=== PATIENT | male | born 1945 | race Caucasian/White ===

== ENCOUNTER 2020-09-04 13:31 | Outpatient (CLI) | payer MEDICARE, OTHER ==
--- NOTE | 2020-09-04 13:57 | XRAY Report ---
PROCEDURE: Knee 3 View BILAT INDICATIONS: HX OF KNEE FX, BILAT KNEE PAIN, BILAT KNEE OSTEOAR TECHNIQUE: 3 views of each knee) were acquired. COMPARISON: None. 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 Fracture fixatio n wires within the right patella. Mild tricompartmental periarticular osteophyte formation bilaterall y. Soft tissues: No joint effusion. No suspicious soft tissue calcifications. IMPRESSION: 1. Fractured right patellar fixation wires with ununited fracture fragments. 2. Bilateral knee osteoarthritis. 3. No acute fracture. No osseous lesion. If symptoms and/or clinical suspicion for pathology continue , further assessment with repeat plain films, or advanced imaging (e.g., CT, MRI, or bone scan) is re commended for further assessment. Reviewed by: Zenaida Mcgraw MD on 09/04/2020 1:55 PM PST Approved by: Zenaida Mcgraw MD on 09/04/2020 1:55 PM PST Station ID: [id number]
== END 2020-09-04 13:32 | disposition home or self-care (01) ==
LOC: DI 13:31
PROVIDERS: ATTEND Naprapath
DX: M17.0 Bilateral primary osteoarthritis of knee (principal); Z87.81 Personal history of (healed) traumatic fracture

== ENCOUNTER 2022-05-31 21:12 | Outpatient (CLI) | payer MEDICARE, OTHER | END 2022-05-31 21:13 | disposition critical access hospital (66) | LOC: EMS 21:12 | DX: R55 Syncope and collapse (principal); I95.9 Hypotension, unspecified | CPT/HCPCS: A0425; A0427 ==

== ENCOUNTER 2022-05-31 21:39 | Emergency (ER) | payer MEDICARE, OTHER ==
[2022-05-31] MEDS ORDERED: SODIUM CHLORIDE 0.9% 500 ML IV STA (22:08)
--- NOTE | 2022-05-31 22:09 | ED Physician Documentation ---
PD HPI SYNCOPE - Stated complaint Stated Complaint: AMS/HYPOTENSIVE - Chief complaint Chief Complaint: Neuro - History obtained from History obtained from: Patient, EMS (Medics noted initial BP to be 75/41 systolic. HR good. Patient feeling okay enroute and BP improved.) - History of Present Illness Witnessed: Witnessed (patient had dinner and was sitting outside with spouse, having drink and some cannibis, which is common for them. [place] lightheaded and partner said the patient became unresponsive in the chair. Spouse moved him to the ground and patient started rousing. Was awake by EMS arrival. They noted BP low.) Timing - onset: How many minutes ago (30) Duration: Seconds Preceding symptoms: Light headed. No: Headache, Chest pain, Abdominal pain Associated symptoms: Other (did have feeling of general body aches and malaise earlier today.). No: Seizure, Headache, Chest pain, Abdominal pain Contributing factors: Recent med change (got COVID and Flu vaccines 2 days ago. Had increase in Doxazosin and added finasteride 2 weeks ago.). No: Decreased PO intake, Just stood up Injury occurred: No: Fell, Head injury, Neck injury Review of Systems Constitutional: reports: Myalgias, Fatigue. denies: Fever, Chills Nose: denies: Rhinorrhea / runny nose, Congestion Throat: denies: Sore throat Cardiac: denies: Chest pain / pressure, Palpitations, Pedal edema, Calf pain Respiratory: denies: Cough GI: denies: Abdominal Pain, Nausea, Vomiting Neurologic: denies: Focal weakness, Altered mental status, Headache PD PAST MEDICAL HISTORY - Past Medical History Cardiovascular: None Respiratory: None Neuro: None Endocrine/Autoimmune: None : Benign prostate hypertrophy - Allergies Allergies/Adverse Reactions: Allergies Allergy/AdvReac Type Severity Reaction Status Date / Time No Known Drug Allergies Allergy Verified 05/31/22 21:55 PD ED PE NORMAL - Vitals Vital signs reviewed: Yes - General General: Alert and oriented X 3, No acute distress, Well developed/nourished - HEENT HEENT: Pharynx benign - Neck Neck: Supple, no meningeal sign, No adenopathy - Cardiac Cardiac: RRR, No murmur - Respiratory Respiratory: Clear bilaterally - Abdomen Abdomen: Soft, Non tender - Derm Derm: Normal color, Warm and dry - Extremities Extremities: Normal ROM s pain, No edema, No calf tenderness / cord Results - Vitals Vitals: Oxygen O2 Source Room air - EKG (time done) 22:24 Rate: Rate (enter#) (60) Rhythm: NSR [place]: Normal Intervals: Normal LA QRS: Normal Ischemia: Normal ST segments. No: ST elevation c/w ischemia, ST depression Compare to prior EKG: Old EKG unavailable Computer interpretation: Agree with computer - Labs Labs: Laboratory Tests 05/31/22 05/31/22 05/31/22 22:25 22:25 22:25 WBC 6.0 RBC 3.81 L Hgb 11.8 L Hct 36.5 L MCV 95.8 H MCH 31.0 MCHC 32.3 RDW 13.1 Plt Count 158 MPV 11.3 Neut # (Auto) 3.9 Lymph # (Auto) 1.2 L Webb # (Auto) 0.6 Eos # (Auto) 0.3 Baso # (Auto) 0.0 Absolute Nucleated RBC 0.00 Nucleated RBC % 0.0 Sodium 141 Potassium 3.7 Chloride 106 Carbon Dioxide 27 Anion Gap 8.0 BUN 31 H Creatinine 1.4 H Estimated GFR (MDRD) 49 L Glucose 124 H Calcium 8.6 Magnesium 2.1 Total Bilirubin 0.6 AST 17 ALT 14 Alkaline Phosphatase 52 Troponin I High Sens 7.5 Total Protein 6.3 L Albumin 3.8 Globulin 2.5 Albumin/Globulin Ratio 1.5 Lipase 42 PD MEDICAL DECISION MAKING - ED course Complexity details: reviewed results, considered differential (seems likely confluence of recent med increase, some effect from vaccine 2 days ago, and some alcohol. ), d/w patient Departure - Departure Disposition: 01 Home, Self Care Clinical Impression: Syncope, Transient hypotension Condition: Stable Record reviewed to determine appropriate education?: Yes Instructions: ED Fainting Unkn Cause Follow-Up: You Starkey MD [Primary Care Provider] - Comments: Your basic blood tests vital signs and EKG are good here. No signs of heart attack or abnormal heart rhythm. Blood sugar was good. At this point it is unclear the cause of your transient low blood pressure. It could have been a combined effect of hydration level, some side symptoms from your vaccinations 2 days ago and the recently increased prostate medicines. Stay well-hydrated. For now I would suggest going down to the prior dose of the doxazosin. If you are feeling well over the next few days, then you could resume the double dose that you are currently on. Follow-up with your primary care if repeated episodes in the near future. Discharge Date/Time: 05/31/22 23:37
--- OUTSIDE RECORDS SUMMARY | 2022-05-31 22:33 | EXTERNAL MEDICAL SUMMARY RPT | Continuity of Care Document ---
:1945 Author Organization [facility] Address [address] [place] [address] Phone Care Team Providers Name Role Phone Unavailable Unavailable Unavailable Promise Patient Registrar, Alma Unavailable Kimmie Andinop,Reinforcement Maker, Kuldeep Unavailable Unavailable Allergies No information. Encounters No information. Functional Status No information. Immunizations No information. Medications date description facility [id number] methylprednisolone [facility] [place] [phone]+0000 methylprednisolone [facility] [place] [id number]+0000 amoxicillin [facility] [place] [phone]+0000 amoxicillin [facility] [place] [phone]+0000 amoxicillin [facility] [place] [phone]+0000 amoxicillin [facility] [place] [phone]+0000 oxymetazoline [facility] [place] [phone]+0000 oxymetazoline [facility] [place] [phone]+0000 amoxicillin [facility] [place] [phone]+0000 amoxicillin [facility] [place] [phone]+0000 gemfibrozil [facility] [place] [phone]+0000 gemfibrozil [facility] [place] [phone]+0000 gemfibrozil [facility] [place] [phone]+0000 methylprednisolone [facility] [place] [phone]+0000 methylprednisolone [facility] [place] [phone]+0000 doxazosin [facility] [place] [phone]+0000 doxazosin [facility] [place] [phone]+0000 doxazosin [facility] [place] [phone]+0000 oxymetazoline [facility] [place] [phone]+0000 oxymetazoline [facility] [place] [phone]+0000 methylprednisolone [facility] [place] [phone]+0000 methylprednisolone [facility] [place] [phone]+0000 doxazosin [facility] [place] [phone]+0000 doxazosin [facility] [place] [phone]+0000 doxazosin [facility] [place] [phone]+0000 enalapril maleate [facility] [place] [phone]+0000 enalapril maleate [facility] [place] [phone]+0000 enalapril maleate [facility] [place] [phone]+0000 amoxicillin [facility] [place] [phone]+0000 amoxicillin [facility] [place] [phone]+0000 gemfibrozil [facility] [place] [phone]+0000 gemfibrozil [facility] [place] [phone]+0000 gemfibrozil [facility] [place] [phone]+0000 enalapril maleate [facility] [place] [phone]+0000 enalapril maleate [facility] [place] [phone]+0000 enalapril maleate [facility] [place] [phone]+0000 doxazosin [facility] [place] [phone]+0000 doxazosin [facility] [place] [phone]+0000 doxazosin [facility] [place] [phone]+0000 gemfibrozil [facility] [place] [phone]+0000 gemfibrozil [facility] [place] [phone]+0000 gemfibrozil [facility] [place] [phone]+0000 oxymetazoline [facility] [place] [phone]+0000 oxymetazoline [facility] [place] [phone]+0000 enalapril maleate [facility] [place] [phone]+0000 enalapril maleate [facility] [place] [phone]+0000 enalapril maleate [facility] [place] [phone]+0000 doxazosin [facility] [place] [phone]+0000 doxazosin [facility] [place] [phone]+0000 doxazosin [facility] [place] [phone]+0000 methylprednisolone [facility] [place] [phone]+0000 methylprednisolone [facility] [place] [phone]+0000 enalapril maleate [facility] [place] [phone]+0000 enalapril maleate [facility] [place] [phone]+0000 enalapril maleate [facility] [place] [phone]+0000 gemfibrozil [facility] [place] [phone]+0000 gemfibrozil [facility] [place] [phone]+0000 gemfibrozil [facility] [place] Problems No information. Procedures date description facility [id number] Visit Code Hold [facility] [place] Results/Labs No information. Social History date description facility +0000 Never smoker [facility] [place] Vital Signs date measurement value units +0000 BMI BMI 32.99 kg/m2 +0000 BP_diastolic BP_diastolic 76 mmHg +0000 BP_systolic BP_systolic 138 mmHg +0000 heart_rate heart_rate 63 /min +0000 height_metric height_metric 190.5 cm +0000 height_standard height_standard 75 in +0000 respiration_rate respiration_rate 16 /min +0000 temperature_metric temperature_metric 36.22 C +0000 temperature_standard temperature_standard 9 7.2 F +0000 weight_metric weight_metric 119.29 kg +0000 weight_standard weight_standard 263 lb
[2022-05-31 22:38] LABS: BASOPHILS % (AUTO) 0.2 %; EOSINOPHILS # (AUTO) 0.3 10^3/uL (0.0-0.7); EOSINOPHILS % (AUTO) 4.8 %; HCT - HEMATOCRIT 36.5 % (42.0-52.0); HGB - HEMOGLOBIN 11.8 g/dL (14.0-18.0); LYMPHOCYTES # (AUTO) 1.2 10^3/uL (1.5-3.5); LYMPHOCYTES % (AUTO) 20.1 %; MEAN CORPUSCULAR HGB CONC 32.3 g/dL (32.0-36.0); MEAN CORPUSCULAR VOLUME 95.8 fL (80.0-94.0); MEAN PLATELET VOLUME 11.3 fL (7.4-11.4); MONOCYTES # (AUTO) 0.6 10^3/uL (0.0-1.0); NEUTROPHILS # (AUTO) 3.9 10^3/uL (1.5-6.6); NEUTROPHILS % (AUTO) 64.4 %; PLT - PLATELET COUNT 158 10^3/uL (130-450); RED BLOOD COUNT 3.81 10^6/uL (4.70-6.10); RED CELL DISTRIBUTION WIDTH 13.1 % (12.0-15.0)
[2022-05-31 22:52] LABS: ALBUMIN 3.8 g/dL (3.2-5.5); ALBUMIN/GLOBULIN RATIO 1.5 (1.0-2.2); BILIRUBIN,TOTAL 0.6 mg/dL (0.2-1.0); CALCIUM 8.6 mg/dL (8.5-10.3); CREATININE 1.4 mg/dL (0.6-1.2); MAGNESIUM 2.1 mg/dL (1.7-2.8); POTASSIUM 3.7 mmol/L (3.5-5.0); TOTAL PROTEIN 6.3 g/dL (6.7-8.2)
[2022-05-31 23:07] VITALS: BP 135/79
== END 2022-05-31 23:37 | disposition home or self-care (01) ==
LOC: EDUNIT# → ED 21:39
DX: R55 Syncope and collapse (principal); I95.89 Other hypotension
CPT/HCPCS: 36415; 80053; 83690; 83735; 84484; 85025; 93005; 96360; 99284

== ENCOUNTER 2022-11-15 22:10 | Outpatient (CLI) | payer MEDICARE, OTHER | END 2022-11-15 23:59 | disposition critical access hospital (66) | LOC: EMS 22:10 | DX: R40.4 Transient alteration of awareness (principal); I95.9 Hypotension, unspecified | CPT/HCPCS: A0425; A0427 ==

== ENCOUNTER 2022-11-15 22:33 | Emergency (ER) | payer MEDICARE, OTHER ==
[2022-11-15] MEDS ORDERED: SODIUM CHLORIDE 0.9% 1,000 ML IV STA (23:13)
[2022-11-15 23:36] LABS: BASOPHILS % (AUTO) 0.5 %; EOSINOPHILS # (AUTO) 0.3 10^3/uL (0.0-0.7); EOSINOPHILS % (AUTO) 4.6 %; HCT - HEMATOCRIT 35.3 % (42.0-52.0); HGB - HEMOGLOBIN 11.5 g/dL (14.0-18.0); LYMPHOCYTES # (AUTO) 1.1 10^3/uL (1.5-3.5); LYMPHOCYTES % (AUTO) 18.7 %; MEAN CORPUSCULAR HEMOGLOBIN 30.9 pg (27.0-31.0); MEAN CORPUSCULAR HGB CONC 32.6 g/dL (32.0-36.0); MEAN CORPUSCULAR VOLUME 94.9 fL (80.0-94.0); MEAN PLATELET VOLUME 11.4 fL (7.4-11.4); MONOCYTES # (AUTO) 0.6 10^3/uL (0.0-1.0); MONOCYTES % (AUTO) 10.4 %; NEUTROPHILS % (AUTO) 65.5 %; PLT - PLATELET COUNT 149 10^3/uL (130-450); RED BLOOD COUNT 3.72 10^6/uL (4.70-6.10); RED CELL DISTRIBUTION WIDTH 13.3 % (12.0-15.0); WHITE BLOOD COUNT 6.1 x10^3/uL (4.8-10.8)
--- NOTE | 2022-11-15 23:38 | XRAY Report ---
PROCEDURE: Chest 1 View X-Ray INDICATIONS: chest pain TECHNIQUE: One view of the chest was acquired. COMPARISON: None. FINDINGS: Surgical changes and devices: None. Lungs and pleura: An incomplete inspiratory result is noted, with low lung volumes and crowding of t he vascular markings. No focal infiltrates are seen. No large pneumothorax or large pleural effusion can be seen. Mediastinum: Mediastinal contours appear normal. Heart size is normal. Bones and chest wall: No suspicious bony lesions. Overlying soft tissues appear unremarkable. IMPRESSION: Limited portable chest examination, without an acute abnormality identified. Reviewed by: Bryon Knapp MD on 11/15/2022 10:37 PM ANEUDY Approved by: Bryon Knapp MD on 11/15/2022 10:37 PM ANEUDY Station ID: [id number]
[2022-11-15 23:51] LABS: BILIRUBIN,URINE NEGATIVE (NEGATIVE); GLUCOSE, URINE (UA) NEGATIVE (NEGATIVE); KETONES,URINE (UA) NEGATIVE (NEGATIVE); LEUKOCYTE ESTERASE, URINE NEGATIVE (NEGATIVE); NITRITE,URINE NEGATIVE (NEGATIVE); OCCULT BLOOD,URINE NEGATIVE (NEGATIVE); PH,URINE 5.5 PH (5.0-7.5); PROTEIN,URINE NEGATIVE (NEGATIVE); UROBILINOGEN,URINE 0.2 (NORMAL) E.U./dL (NORMAL)
[2022-11-15 23:55] LABS: CLARITY,URINE CLEAR (CLEAR)
[2022-11-16 00:06] LABS: ALBUMIN 3.8 g/dL (3.2-5.5); ALBUMIN/GLOBULIN RATIO 1.5 (1.0-2.2); BILIRUBIN,TOTAL 0.6 mg/dL (0.2-1.0); CALCIUM 8.5 mg/dL (8.5-10.3); CREATININE 1.4 mg/dL (0.6-1.2); POTASSIUM 3.5 mmol/L (3.5-5.0); TOTAL PROTEIN 6.4 g/dL (6.7-8.2)
--- NOTE | 2022-11-16 01:11 | ED Physician Documentation ---
PD HPI SYNCOPE - Stated complaint Stated Complaint: AMS - Chief complaint Chief Complaint: Neuro - History obtained from History obtained from: Patient, EMS - Additional information Additional information: HPI is from patient as well as from EMS. Patient is brought in by ambulance. At approximately 9 PM tonight, patient says he was sitting with friends around a fire pit. Patient says he was smoking marijuana. He says he had a long car trip during the day today and had left behind his water bottle at 1 point, and thus he feels he might be dehydrated. He does not recall any prodrome, but suddenly was waking up after having lost consciousness for reportedly 3 to 5 minutes. By the time EMS arrived on scene, patient was a AO x4 and asymptomatic with normal vital signs. His fingerstick blood sugar for EMS was 141. Initial BP was 73 SBP (by palp), subsequently 98/56 with IV NS infusion en route. Patient says he had a similar episode last year and was evaluated in the emergency department and that test results were unremarkable and thus no etiology was determined at that time. Patient denies having any chest pain, shortness of breath, headache, weakness, numbness. Review of Systems Constitutional: denies: Fever, Chills, Sweats Eyes: denies: Loss of vision, Decreased vision Cardiac: reports: Reviewed and negative Respiratory: reports: Reviewed and negative GI: reports: Reviewed and negative Neurologic: reports: Syncope, LOC. denies: Generalized weakness, Focal weakness, Numbness, Headache PD PAST MEDICAL HISTORY - Past Medical History Past Medical History: Yes Cardiovascular: None Respiratory: None Neuro: None Endocrine/Autoimmune: None : Benign prostate hypertrophy - Past Surgical History Past Surgical History: Yes Ortho: Other HEENT: Tonsil/Adenoidectomy - Allergies Allergies/Adverse Reactions: Allergies Allergy/AdvReac Type Severity Reaction Status Date / Time No Known Drug Allergies Allergy Verified 11/15/22 22:44 - Social History Does the pt smoke?: No Smoking Status: Never smoker Does the pt drink ETOH?: Yes Does the pt have substance abuse?: No - Immunizations Immunizations are current?: Yes - POLST Patient has POLST: No PD ED PE NORMAL - Vitals Vital signs reviewed: Yes - General General: Alert and oriented X 3, No acute distress, Well developed/nourished - HEENT HEENT: PERRL, EOMI, Moist mucous membranes - Neck Neck: Supple, no meningeal sign - Cardiac Cardiac: RRR, No murmur, No gallop, No rub - Respiratory Respiratory: No respiratory distress, Clear bilaterally - Abdomen Abdomen: Soft, Non tender - Derm Derm: Normal color, Warm and dry - Neuro Neuro: Alert and oriented X 3, rod hanger 2-12 intact, No motor deficit, No sensory deficit, Normal speech Eye Opening: Spontaneous Motor: Obeys Commands Verbal: Oriented GCS Score: 15 Results - Vitals Vitals: Oxygen O2 Source Room air - EKG (time done) No standard instances EKG releavant findings:: EKG personally interpreted by author of this note. Relevant findings are: Rate: Rate (enter#) (52) Rhythm: NSR [place]: Normal Intervals: Other (short MA interval) QRS: Normal Ischemia: Normal ST segments - Labs Labs: Laboratory Tests 11/15/22 11/15/22 11/15/22 23:22 23:22 23:22 WBC 6.1 RBC 3.72 L Hgb 11.5 L Hct 35.3 L MCV 94.9 H MCH 30.9 MCHC 32.6 RDW 13.3 Plt Count 149 MPV 11.4 Neut # (Auto) 4.0 Lymph # (Auto) 1.1 L [place] # (Auto) 0.6 Eos # (Auto) 0.3 Baso # (Auto) 0.0 Absolute Nucleated RBC 0.00 Nucleated RBC % 0.0 Sodium 140 Potassium 3.5 Chloride 104 Carbon Dioxide 26 Anion Gap 10.0 BUN 27 H Creatinine 1.4 H Estimated GFR (MDRD) 49 L Glucose 135 H Calcium 8.5 Total Bilirubin 0.6 AST 21 ALT 14 Alkaline Phosphatase 46 Troponin I High Sens Total Protein 6.4 L Albumin 3.8 Globulin 2.6 Albumin/Globulin Ratio 1.5 Lipase 42 TSH 1.95 Urine Color Urine Clarity Urine pH Ur Specific [place] Urine Protein Urine Glucose (UA) Urine Ketones Urine Occult Blood Urine Nitrite Urine Bilirubin Urine Urobilinogen Ur Leukocyte Esterase Ur Microscopic Review Urine Culture Comments 11/15/22 11/15/22 23:22 23:40 WBC RBC Hgb Hct MCV MCH MCHC RDW Plt Count MPV Neut # (Auto) Lymph # (Auto) [place] # (Auto) Eos # (Auto) Baso # (Auto) Absolute Nucleated RBC Nucleated RBC % Sodium Potassium Chloride Carbon Dioxide Anion Gap BUN Creatinine Estimated GFR (MDRD) Glucose Calcium Total Bilirubin AST ALT Alkaline Phosphatase Troponin I High Sens 5.9 Total Protein Albumin Globulin Albumin/Globulin Ratio Lipase TSH Urine Color YELLOW Urine Clarity CLEAR Urine pH 5.5 Ur Specific [place] 1.015 Urine Protein NEGATIVE Urine Glucose (UA) NEGATIVE Urine Ketones NEGATIVE Urine Occult Blood NEGATIVE Urine Nitrite NEGATIVE Urine Bilirubin NEGATIVE Urine Urobilinogen 0.2 (NORMAL) Ur Leukocyte Esterase NEGATIVE Ur Microscopic Review NOT INDICATED Urine Culture Comments NOT INDICATED - Rads (name of study) chest xray Relevant Findings:: Prelim report reviewed, See rad report PD Medical Decision Making - ED course Complexity details: reviewed results, re-evaluated patient, considered differential, d/w patient ED course: Patient presents after syncopal episode is asymptomatic with initial hypotensive BP on EMS arrival on scene but rapid improvement with IV fluids en route by EMS, and he remains asymptomatic during ED stay with normal vital signs throughout ED stay. There are no concerning findings on blood tests, chest x-ray, EKG. He has mildly elevated BUN/creatinine, but these are comparable to previous results from ED visit last year. Results discussed with patient. The cause of his syncope is not apparent at this time. I advised him to follow-up with his primary care provider, next billable appointment for reevaluation, and return precautions were reviewed. Departure - Departure Disposition: 01 Home, Self Care Clinical Impression: Syncope Qualifiers: Syncope type: unspecified Qualified Code(s): R55 - Syncope and collapse Condition: Good Instructions: ED Fainting Unkn Cause Comments: There were no concerning or diagnostic findings on tonight's tests, including the blood tests, urinalysis, EKG, and chest x-ray. The cause of your syncope (passing out) is not apparent at this time. I recommend that you contact your primary care provider on Thursday when their office opens to arrange for the next available appointment for reevaluation; you should do this even if you do not have any recurrence of symptoms. Further testing might be indicated even if your symptoms do not recur. Discharge Date/Time: 11/16/22 01:50
[2022-11-16 01:50] VITALS: BP 144/78
== END 2022-11-16 01:50 | disposition home or self-care (01) ==
LOC: ED 22:33
DX: R55 Syncope and collapse (principal)
CPT/HCPCS: 36415; 80053; 81001; 81003; 83690; 84443; 84484; 85025; 87086; 93005; 99283; 99284

== ENCOUNTER 2023-02-18 22:22 | Outpatient (CLI) | payer MEDICARE, OTHER | END 2023-02-18 22:23 | disposition critical access hospital (66) | LOC: EMS 22:22 | DX: R55 Syncope and collapse (principal); R03.1 Nonspecific low blood-pressure reading; R53.1 Weakness; R27.0 Ataxia, unspecified | CPT/HCPCS: A0425; A0427 ==

== ENCOUNTER 2023-02-18 22:51 | Emergency (ER) | payer MEDICARE, OTHER ==
[2023-02-18] MEDS ORDERED: SODIUM CHLORIDE 0.9% 1,000 ML IV STA (23:00)
--- NOTE | 2023-02-18 23:06 | ED Physician Documentation ---
History of Present Illness - Stated complaint Stated Complaint: HYPOTENSION - Chief complaint Chief Complaint: Neuro - History obtained from History obtained from: Patient - Additonal information Additional information: 77yM with pmh htn on losartan (AM med) and enalapril (PM med), finasteride, p/w syncopal episode tonight after drinking alcohol and using marijuana. patient has had three prior similar episodes and told he has orthostatic hypotension. patient has appointment with his pcp tomorrow to discuss this. Per ems, patient had BP in 70s in the field, improving to 90s and then 110s spontaneously. now in the ED he denies dizziness and transfers to the bed without difficulty. BP normalized in the ED. He received 500cc ivf in the field. Orthostatic vital signs in the field: 133/78 lying down 92/54 standing Review of Systems Constitutional: denies: Fever Cardiac: denies: Chest pain / pressure Respiratory: denies: Dyspnea GI: denies: Abdominal Pain, Nausea, Vomiting, Diarrhea Musculoskeletal: denies: Neck pain, Back pain Neurologic: reports: Syncope PD PAST MEDICAL HISTORY - Past Medical History Cardiovascular: None Respiratory: None Neuro: None Endocrine/Autoimmune: None : Benign prostate hypertrophy - Past Surgical History Past Surgical History: Yes Ortho: Other HEENT: Tonsil/Adenoidectomy - Allergies Allergies/Adverse Reactions: Allergies Allergy/AdvReac Type Severity Reaction Status Date / Time No Known Drug Allergies Allergy Verified 11/15/22 22:44 - Social History Does the pt smoke?: No Smoking Status: Never smoker Does the pt drink ETOH?: Yes Does the pt have substance abuse?: No - Immunizations Immunizations are current?: Yes - POLST Patient has POLST: No PD ED PE NORMAL - Vitals Vital signs reviewed: Yes - General General: Alert and oriented X 3, No acute distress, Well developed/nourished - HEENT HEENT: Atraumatic, PERRL, EOMI, Moist mucous membranes, Pharynx benign - Neck Neck: Supple, no meningeal sign - Cardiac Cardiac: RRR - Respiratory Respiratory: No respiratory distress, Clear bilaterally - Abdomen Abdomen: Non tender, Non distended - Derm Derm: Normal color, Warm and dry - Neuro Neuro: Alert and oriented X 3, survival equipment repairer 2-12 intact, No motor deficit, No sensory deficit, Normal speech, Other (normal cerebellar testing, gait, strength) Eye Opening: Spontaneous Motor: Obeys Commands Verbal: Oriented GCS Score: 15 - Psych Psych: Normal mood, Normal affect Results - Vitals Vitals: Vital Signs - 24 hr 02/18/23 22:56 Temperature 36.1 C L Heart Rate 80 Respiratory 16 Rate Blood Pressure 152/85 H O2 Saturation 93 Oxygen O2 Source Room air - EKG (time done) 2255 EKG releavant findings:: EKG personally interpreted by author of this note. Relevant findings are: Rate: Rate (enter#) (55) Rhythm: Sinus bradycardia [place]: Normal Intervals: Normal [place] QRS: Normal Ischemia: Normal ST segments - Labs Labs: Laboratory Tests 02/18/23 02/18/23 02/18/23 23:08 23:08 23:08 WBC 6.2 RBC 3.60 L Hgb 11.3 L Hct 34.8 L MCV 96.7 H MCH 31.4 H MCHC 32.5 RDW 12.8 Plt Count 170 MPV 10.6 Neut # (Auto) 4.0 Lymph # (Auto) 1.3 L [place] # (Auto) 0.7 Eos # (Auto) 0.2 Baso # (Auto) 0.0 Absolute Nucleated RBC 0.00 Nucleated RBC % 0.0 Sodium 141 Potassium 3.9 Chloride 105 Carbon Dioxide 30 Anion Gap 6.0 BUN 26 H Creatinine 1.3 Estimated GFR (MDRD) 54 L Glucose 109 H Calcium 9.3 Total Bilirubin 0.4 AST 21 ALT 16 Alkaline Phosphatase 49 Troponin I High Sens 6.6 Total Protein 6.4 Albumin 4.2 Globulin 2.2 Albumin/Globulin Ratio 1.9 Lipase 26 PD Medical Decision Making - ED course ED course: 77yM presents to the ED with syncopal episode after drinking alcohol and using marijuana. Orthostatic in the field. Patient improved after 500cc IVF provided by ems and is asymptomatic on arrival to ED. cbc, abdominal panel, trop ordered. additional 1L IVF provided. cardiac monitoring unremarkable in the ED. CXR wet read unremarkable. ekg benign. Patient ambulatory to bathroom and asymptomatic. plan to f/u outpatient with pcp tomorrow. return precautions given. counseling provided to quit using marijuana and alcohol together. Departure - Departure Disposition: 01 Home, Self Care Clinical Impression: Orthostatic hypotension, Syncope Condition: Stable Instructions: ED Hypotension Orthostatic Comments: You were seen in the emergency department for fainting episode caused by orthostatic hypotension. This likely was brought about by the combination of alcohol and marijuana in conjunction with your medication use.Please follow-up with your primary care provider tomorrow to discuss further. Do not use marijuana and alcohol together in future. . Return to the emergency department if you have other concerns Forms: PCP List
[2023-02-18 23:08] VITALS: BP 152/85
[2023-02-18 23:13] LABS: BASOPHILS % (AUTO) 0.3 %; EOSINOPHILS # (AUTO) 0.2 10^3/uL (0.0-0.7); HCT - HEMATOCRIT 34.8 % (42.0-52.0); HGB - HEMOGLOBIN 11.3 g/dL (14.0-18.0); LYMPHOCYTES # (AUTO) 1.3 10^3/uL (1.5-3.5); MEAN CORPUSCULAR HEMOGLOBIN 31.4 pg (27.0-31.0); MEAN CORPUSCULAR HGB CONC 32.5 g/dL (32.0-36.0); MEAN CORPUSCULAR VOLUME 96.7 fL (80.0-94.0); MEAN PLATELET VOLUME 10.6 fL (7.4-11.4); MONOCYTES # (AUTO) 0.7 10^3/uL (0.0-1.0); MONOCYTES % (AUTO) 11.9 %; NEUTROPHILS % (AUTO) 63.5 %; PLT - PLATELET COUNT 170 10^3/uL (130-450); RED CELL DISTRIBUTION WIDTH 12.8 % (12.0-15.0); WHITE BLOOD COUNT 6.2 x10^3/uL (4.8-10.8)
[2023-02-18 23:51] LABS: ALBUMIN 4.2 g/dL (3.2-5.5); ALBUMIN/GLOBULIN RATIO 1.9 (1.0-2.2); BILIRUBIN,TOTAL 0.4 mg/dL (0.2-1.0); CALCIUM 9.3 mg/dL (8.5-10.3); CREATININE 1.3 mg/dL (0.6-1.3); POTASSIUM 3.9 mmol/L (3.5-4.5); TOTAL PROTEIN 6.4 g/dL (6.4-8.9)
--- NOTE | 2023-02-19 00:53 | XRAY Report ---
PROCEDURE: Chest 1 View X-Ray INDICATIONS: Chest Pain TECHNIQUE: One view of the chest was acquired. COMPARISON: Chest x-ray 11/15/2022. FINDINGS: Surgical changes and devices: None. Lungs and pleura: No pleural effusions or pneumothorax. Lungs are clear. Mediastinum: Mediastinal contours appear normal. Heart size is normal. Bones and chest wall: No suspicious bony lesions. Overlying soft tissues appear unremarkable. IMPRESSION: No acute cardiopulmonary disease. Reviewed by: Umer Aguirre MD on 02/19/2023 12:51 AM PDT Approved by: Umer Aguirre MD on 02/19/2023 12:51 AM PDT Station ID: [id number]
== END 2023-02-19 00:53 | disposition home or self-care (01) ==
LOC: EDUNIT# → EDBD → ED 22:51
DX: I95.1 Orthostatic hypotension (principal)
CPT/HCPCS: 36415; 80053; 83690; 84484; 85025; 93005; 99283; 99284

== ENCOUNTER 2023-08-05 22:32 | Emergency (ER) | payer MEDICARE, OTHER ==
[2023-08-05 22:47] VITALS: O2SAT 95
[2023-08-05] MEDS ORDERED: amLODIPine 5 MG TABLET PO STA (23:07)
[2023-08-05 23:39] LABS: BASOPHILS % (AUTO) 0.7 %; EOSINOPHILS # (AUTO) 0.2 10^3/uL (0.0-0.7); EOSINOPHILS % (AUTO) 3.7 %; HCT - HEMATOCRIT 38.7 % (42.0-52.0); HGB - HEMOGLOBIN 12.7 g/dL (14.0-18.0); LYMPHOCYTES # (AUTO) 1.2 10^3/uL (1.5-3.5); MEAN CORPUSCULAR HEMOGLOBIN 30.7 pg (27.0-31.0); MEAN CORPUSCULAR HGB CONC 32.8 g/dL (32.0-36.0); MEAN CORPUSCULAR VOLUME 93.5 fL (80.0-94.0); MEAN PLATELET VOLUME 10.7 fL (7.4-11.4); MONOCYTES # (AUTO) 0.5 10^3/uL (0.0-1.0); NEUTROPHILS # (AUTO) 2.5 10^3/uL (1.5-6.6); NEUTROPHILS % (AUTO) 56.4 %; PLT - PLATELET COUNT 164 10^3/uL (130-450); RED BLOOD COUNT 4.14 10^6/uL (4.70-6.10); RED CELL DISTRIBUTION WIDTH 13.3 % (12.0-15.0); WHITE BLOOD COUNT 4.3 x10^3/uL (4.8-10.8)
[2023-08-06] LABS: ALBUMIN 4.5 g/dL (3.2-5.5); ALBUMIN/GLOBULIN RATIO 1.9 (1.0-2.2); BILIRUBIN,TOTAL 0.6 mg/dL (0.2-1.0); CALCIUM 9.4 mg/dL (8.5-10.3); CREATININE 0.8 mg/dL (0.6-1.3); POTASSIUM 3.6 mmol/L (3.5-4.5); TOTAL PROTEIN 6.9 g/dL (6.4-8.9)
--- NOTE | 2023-08-06 00:01 | XRAY Report ---
PROCEDURE: Chest 2V INDICATIONS: dizzy, HTN TECHNIQUE: 2 views of the chest were acquired. COMPARISON: 02/18/2023 FINDINGS: Surgical changes and devices: None. Lungs and pleura: No dense consolidation or pleural effusion. Low lung volumes. Interstitial is mild ly prominent Mediastinum: Normal heart size Bones and chest wall: Degenerative changes. IMPRESSION: Mildly prominent interstitium could represent edema or atypical infection. Low lung volumes. Consider future imaging surveillance to assess for resolution. Reviewed by: Kt Dean MD on 08/06/2023 12:00 AM PST Approved by: Kt Dean MD on 08/06/2023 12:00 AM PST Station ID: [id number]
--- NOTE | 2023-08-06 00:02 | ED Physician Documentation ---
History of Present Illness - Stated complaint Stated Complaint: HIGH BP - Chief complaint Chief Complaint: General - History obtained from History obtained from: Patient, Family () - Additonal information Additional information: 78yM with pmh htn presents to the ED with high blood pressure yesterday and today and intermittent dizziness. denies cp, soa, fever, uri sympotms, n/v/d urinary symptoms. He does state he has been having more pain than usual lately in his knees and R shoulder after doing some heavy lifting and taking ibuprofen as needed. PD PAST MEDICAL HISTORY - Past Medical History Cardiovascular: None Respiratory: None Neuro: None Endocrine/Autoimmune: None : Benign prostate hypertrophy Musculoskeletal: Other Other Past Medical History: right shoulder injury - Past Surgical History Past Surgical History: Yes Ortho: Other HEENT: Tonsil/Adenoidectomy - Present Medications Home Medications: Ambulatory Orders Medication Instructions Recorded Confirmed Doxazosin Mesylate [Cardura Xl] 8 mg PO DAILY 08/05/23 08/05/23 Enalapril Maleate [Vasotec] 20 mg PO QPM 08/05/23 08/05/23 Finasteride [Proscar] 5 mg PO DAILY 08/05/23 08/05/23 Losartan Potassium [Cozaar] 100 mg PO DAILY 08/05/23 08/05/23 gemfibroziL [Lopid] 600 mg PO BIDAC 08/05/23 08/05/23 - Allergies Allergies/Adverse Reactions: Allergies Allergy/AdvReac Type Severity Reaction Status Date / Time No Known Drug Allergies Allergy Verified 08/05/23 22:44 - Social History Does the pt smoke?: No Smoking Status: Never smoker Does the pt drink ETOH?: Yes Does the pt have substance abuse?: No - Immunizations Immunizations are current?: Yes - POLST Patient has POLST: No PD ED PE NORMAL - Vitals Vital signs reviewed: Yes - General General: Alert and oriented X 3, No acute distress, Well developed/nourished - HEENT HEENT: Atraumatic, PERRL, EOMI, Moist mucous membranes, Pharynx benign - Neck Neck: Supple, no meningeal sign - Cardiac Cardiac: RRR - Respiratory Respiratory: No respiratory distress, Clear bilaterally - Abdomen Abdomen: Non tender, Non distended - Derm Derm: Normal color, Warm and dry Results - Vitals Vitals: Vital Signs - 24 hr 08/05/23 08/05/23 22:33 23:20 Temperature 36.3 C L Heart Rate 68 Heart Rate [ 65 Sitting] Heart Rate [ 68 Standing] Heart Rate [ 56 L Supine] Respiratory 18 Rate Blood Pressure 210/92 H Blood Pressure 173/84 H [Sitting] Blood Pressure 184/97 H [Standing] Blood Pressure 202/86 H [Supine] O2 Saturation 95 Oxygen O2 Source Room air - EKG (time done) 2311 EKG releavant findings:: EKG personally interpreted by author of this note. Relevant findings are: Rate: Rate (enter#) (56) Rhythm: NSR [place]: Normal Intervals: Normal [place] QRS: Normal Ischemia: Normal ST segments - Labs Labs: Laboratory Tests 08/05/23 08/05/23 08/05/23 23:20 23:20 23:20 WBC 4.3 L RBC 4.14 L Hgb 12.7 L Hct 38.7 L MCV 93.5 MCH 30.7 MCHC 32.8 RDW 13.3 Plt Count 164 MPV 10.7 Neut # (Auto) 2.5 Lymph # (Auto) 1.2 L [place] # (Auto) 0.5 Eos # (Auto) 0.2 Baso # (Auto) 0.0 Absolute Nucleated RBC 0.00 Nucleated RBC % 0.0 Sodium 140 Potassium 3.6 Chloride 106 Carbon Dioxide 27 Anion Gap 7.0 BUN 19 Creatinine 0.8 Estimated GFR (MDRD) 94 Glucose 116 H Calcium 9.4 Total Bilirubin 0.6 AST 21 ALT 13 Alkaline Phosphatase 64 Troponin I High Sens 7.8 Total Protein 6.9 Albumin 4.5 Globulin 2.4 Albumin/Globulin Ratio 1.9 Lipase 35 PD Medical Decision Making - ED course ED course: 78yM presents to the ED with asymptomatic hypertension. he does endorse history of intermittent dizziness and patient has orthostatic vital signs with a 29 point drop in blood pressure from lying down to sitting. His BP came down nicely after receiving amlodipine 5mg orally. labwork including trop unremarkable. ekg no STEMI and cardiac monitoring was unremarkable. Since there are no signs of end organ damage and patient is feeling well, plan to dc home to f/u with pcp. counseling provided. return precautions given. Departure - Departure Disposition: Home, Self Care Clinical Impression: Orthostatic dizziness, Hypertension Condition: Stable Instructions: Hypertension Control Comments: You were seen in the emergency department for evaluation of high blood pressure and dizziness. Your systolic blood pressure dropped 29 points when you went from lying down to sitting up, indicating you might benefit from talking to your doctor about orthostatic dizziness as a cause of your symptoms. This can be medication related or be an indication you need to hydrate more, as well as having other potential causes. Your blood pressure improved in the ED after receiving 5mg amlodipine, a common blood pressure medication. Your labwork uncovered no issues. Your chest xray showed a nonspecific pattern that may indicate a virus like the common cold, but since you're not having symptoms, this is not a concern for now. Please follow-up with your primary care provider and return to the emergency department if you have any new or worsening symptoms or other concerns. Forms: PCP List
[2023-08-06 01:03] VITALS: BP 165/79
== END 2023-08-06 00:54 | disposition home or self-care (01) ==
LOC: ED 22:32
DX: R42 Dizziness and giddiness (principal); I10 Essential (primary) hypertension
CPT/HCPCS: 36415; 80053; 83690; 84484; 85025; 93005; 99284

== ENCOUNTER 2023-08-06 12:53 | Emergency (ER) | payer MEDICARE, OTHER ==
[2023-08-06 13:08] VITALS: BP 164/71; O2SAT 98
--- NOTE | 2023-08-06 13:33 | ED Physician Documentation ---
History of Present Illness - Stated complaint Stated Complaint: HIGH BLOOD PRESSURE - Chief complaint Chief Complaint: Cardiac - History obtained from History obtained from: Patient, Other () - Additonal information Additional information: 78-year-old male with history of hypertension was seen here in the emergency department around 1 AM for hypertension and comes back today for concerns of hy pertension. Patient said that he is on 100 mg losartan daily and 20 mg of enalapril nightly at home for his hypertension, he received 1 dose of 5 mg amlodipine last night for his hypertension which brought his blood pressure back into normal limits. He attempted to call his primary care provider today to get an appointment to BP medications adjustment and prior to calling his primary care provider he checked his blood pressure and found it to be 215/90's, he informed the clinic nurse these numbers and she told him to get to the emergency department immediately. On arrival his blood pressure has significantly improved from myself it was found to be 159/80. Patient denies any headache no chest pain no shortness of breath no decreased urinary output no abdominal pain or other concerning symptoms of endorgan damage. PD PAST MEDICAL HISTORY - Past Medical History Past Medical History: Yes Cardiovascular: Hypertension Respiratory: None Neuro: None Endocrine/Autoimmune: None : Benign prostate hypertrophy Musculoskeletal: Other - Past Surgical History Past Surgical History: Yes Ortho: Other HEENT: Tonsil/Adenoidectomy - Present Medications Home Medications: Ambulatory Orders Medication Instructions Recorded Confirmed Doxazosin Mesylate [Cardura Xl] 8 mg PO DAILY 08/05/23 08/06/23 Enalapril Maleate [Vasotec] 20 mg PO QPM 08/05/23 08/06/23 Finasteride [Proscar] 5 mg PO DAILY 08/05/23 08/06/23 Losartan Potassium [Cozaar] 100 mg PO DAILY 08/05/23 08/06/23 gemfibroziL [Lopid] 600 mg PO BIDAC 08/05/23 08/06/23 - Allergies Allergies/Adverse Reactions: Allergies Allergy/AdvReac Type Severity Reaction Status Date / Time No Known Drug Allergies Allergy Verified 08/06/23 13:04 - Social History Does the pt smoke?: No Smoking Status: Never smoker Does the pt drink ETOH?: Yes Does the pt have substance abuse?: No - Immunizations Immunizations are current?: Yes - POLST Patient has POLST: No PD ED PE NORMAL - Vitals Vital signs reviewed: Yes - General General: Alert and oriented X 3, No acute distress, Well developed/nourished - HEENT HEENT: PERRL, Moist mucous membranes - Cardiac Cardiac: RRR, No gallop, Strong equal pulses - Respiratory Respiratory: No respiratory distress, Clear bilaterally - Abdomen Abdomen: Normal bowel sounds, Non tender - Extremities Extremities: No edema - Neuro Neuro: Alert and oriented X 3, community outreach manager 2-12 intact, No motor deficit, No sensory deficit, Normal speech Eye Opening: Spontaneous Motor: Obeys Commands Verbal: Oriented GCS Score: 15 Results - Vitals Vitals: Vital Signs - 24 hr 08/06/23 12:57 Temperature 36.4 C L Heart Rate 56 L Respiratory 15 Rate Blood Pressure 164/71 H O2 Saturation 98 Oxygen O2 Source Room air PD Medical Decision Making - ED course ED course: Patient was seen here last night around 1 AM for hypertension and 1 episode of dizziness at home. He was given 1 dose of amlodipine for his hypertension last night and brought his blood pressure back to normal. Labs were complete last night including chemistry and CBC and were overall unremarkable with no acute abnormalities as well as a normal TSH. Today he denies any symptoms associated with his hypertension and by the time he presents to the emergency department his blood pressure had significantly improved from myself but had come down to 159/80. Patient was told to continue with plan to follow-up with primary care provider for blood pressure medication management and adjustment. There were no interventions warranted at this time he is safe for discharge and was told in the future if he gets a high reading at home to take a couple deep breaths and do some meditation before taking it again and signs and symptoms to watch out for with hypertension that would warrant emergency. All questions answered patient feels alleviated with information and feels safe to discharge at this time. Departure - Departure Disposition: Home, Self Care Clinical Impression: Hypertension Qualifiers: Hypertension type: primary hypertension Qualified Code(s): I10 - Essential (primary) hypertension Condition: Good Instructions: Hypertension Dc Comments: Thank you for coming to the emergency department today. We have evaluated you for hypertension is also your blood pressure was significantly higher at home but to much relief it has improved since you have come to the emergency department. As we discussed hypertension with symptoms of chest pain, decreased urinary output, abdominal pain, headache, strokelike symptoms are emergent. Please follow-up with your primary care provider to see if your hypertension medications need to be adjusted. In the future if you are having no symptoms with your hypertension I recommend doing some calm deep breathing exercises and recheck your blood pressure in about an hour or 2 and see if it improves or not. Please come back to the emergency department if you are starting to experience any of the symptoms listed above or any other concerning symptoms. Forms: PCP List
== END 2023-08-06 13:41 | disposition home or self-care (01) ==
LOC: ED 12:53
DX: I10 Essential (primary) hypertension (principal); R42 Dizziness and giddiness
CPT/HCPCS: 36415; 71046; 80053; 83690; 84484; 85025; 93005; 99281; 99284; A9270

== ENCOUNTER 2024-02-29 10:10 | Outpatient (CLI) | payer MEDICARE ==
[2024-02-29 15:13] LABS: BASOPHILS % (AUTO) 0.7 %; EOSINOPHILS # (AUTO) 0.2 10^3/uL (0.0-0.7); EOSINOPHILS % (AUTO) 4.2 %; HCT - HEMATOCRIT 38.2 % (42.0-52.0); HGB - HEMOGLOBIN 12.1 g/dL (14.0-18.0); LYMPHOCYTES # (AUTO) 1.3 10^3/uL (1.5-3.5); LYMPHOCYTES % (AUTO) 32.2 %; MEAN CORPUSCULAR HEMOGLOBIN 28.5 pg (27.0-31.0); MEAN CORPUSCULAR HGB CONC 31.7 g/dL (32.0-36.0); MEAN CORPUSCULAR VOLUME 89.9 fL (80.0-94.0); MEAN PLATELET VOLUME 11.1 fL (7.4-11.4); MONOCYTES # (AUTO) 0.4 10^3/uL (0.0-1.0); NEUTROPHILS # (AUTO) 2.1 10^3/uL (1.5-6.6); NEUTROPHILS % (AUTO) 51.7 %; PLT - PLATELET COUNT 189 10^3/uL (130-450); RED BLOOD COUNT 4.25 10^6/uL (4.70-6.10); RED CELL DISTRIBUTION WIDTH 15.8 % (12.0-15.0)
[2024-02-29 16:02] LABS: ALBUMIN 4.3 g/dL (3.2-5.5); ALKALINE PHOSPHATASE 72 IU/L (42-121); ALT ALANINE AMINOTRANSFERASE 9 IU/L (10-60); AST ASPARTATE AMINOTRANSFERASE 12 IU/L (10-42); BILIRUBIN,TOTAL 0.6 mg/dL (0.2-1.0); BUN - BLOOD UREA NITROGEN 17 mg/dL (6-20); CALCIUM 9.6 mg/dL (8.5-10.3); CARBON DIOXIDE - CO2 28 mmol/L (21-32); CHLORIDE 108 mmol/L (101-111); CHOL/HDL RATIO 2.7 (<5.0); CHOLESTEROL 139 mg/dL; CREATININE 0.9 mg/dL (0.6-1.3); GFR - MDRD 82 (>89); GLUCOSE 106 mg/dL (74-104); HDL CHOLESTEROL 51 mg/dL; LDL CHOLESTEROL,CALCULATED 75 mg/dL; LDL/HDL RATIO 1.5 (<3.6); POTASSIUM 4.3 mmol/L (3.5-4.5); SODIUM 141 mmol/L (135-145); TOTAL PROTEIN 6.4 g/dL (6.4-8.9); TRIGLYCERIDES 66 mg/dL; VLDL CHOLESTEROL 13 mg/dL
[2024-02-29 20:49] LABS: ESTIMATED AVERAGE GLUCOSE 126 mg/dL (70-100)
== END 2024-02-29 10:11 | disposition home or self-care (01) ==
LOC: LAB.S 10:10
PROVIDERS: ATTEND Internal Medicine
DX: I10 Essential (primary) hypertension (principal); Z13.220 Encounter for screening for lipoid disorders; R73.09 Other abnormal glucose
CPT/HCPCS: 36415; 80053; 80061; 83036; 83721; 85025